=== PATIENT | female | born 1980 | race African-American/Black ===

== ENCOUNTER 2016-05-13 22:08 | Emergency (ER) | payer OTHER ==
[~2016-05-13] VITALS: Ht 160 cm; Wt 56.7 kg
[~2016-05-13 22:08] MED LIST: ADALAT CC60 MG; ALEVE220 MG; APAP500 PO; BLOOD PRESSURE; BUSPIRONE HCL10 MG PO; CIPROFLOXACIN500 M1 PO; CLEOCIN HCL150 MG PO; COLACE 100 MG100 MG PO; DERMOPLAST SPRA56 ML; FLAGYL500 MG PO; FLEXERIL PO; FLONASE 0.05%50 MCG NASAL; HYDROCORTISONE30 G9 RE; IBUPROFEN 400400 M2 PO; IBUPROFEN 800800 M1 PO; IRON325 PO; LANOLIN56 GM; LISINOPRIL5 MG PO; MEDROL DOSPAK21 TAB PO; MEDROLDOSEPACK PO; NOHOMEMEDICATIONS; NORCO 5-325 TA1 EACH PO; NORTRIPTYLINE H10 M2 PO; PHENERGAN 25 MG25 M1 PO; PRENATAL DHA+C1 EACH PO; TUCKS MEDICATE1 EAC1; ULTRAM 50MG TAB50 MG PO; VICODIN 5-5001 EACH PO; VITAMIN D3400 UNIT PO; XANAX 0.5 MG0.5 MG PO; ZOFRAN ODT4 MG PO
[2016-05-13] MEDS ORDERED: HYDRALAZINE 2525 M1 PO (22:17)
[2016-05-13 22:31] LABS: URINE BILIRUBIN NEGATIVE (Negative); URINE BLOOD NEGATIVE (Negative); URINE COLOR YELLOW; URINE GLUCOSE-RANDOM* NEGATIVE (Negative); URINE KETONES NEGATIVE (Negative); URINE LEUKOCYTES-REFLEX NEGATIVE (Negative); URINE PROTEIN (DIPSTICK) NEGATIVE (Negative); URINE UROBILINOGEN 0.2 E.U./dl (0.2-1.0)
[2016-05-13 23:12] LABS: HEMOGLOBIN 14.4 gm/dL (12.0-15.0); MANUAL DIFF YES; MCH 33.6 pg (26.0-34.0); MCHC 35.1 % (28.0-37.0); MCV 95.6 fL (80.0-100.0); PLATELET COUNT 227 thou/uL (150-400); RBC 4.29 mil/uL (4.20-5.00); RDW 11.7 % (10.5-14.5); WBC 8.2 thou/uL (4.0-11.0)
[2016-05-13 23:35] LABS: ALBUMIN 3.7 g/dL (3.4-5.0); ALKALINE PHOSPHATASE 83 U/L (46-116); ANION GAP 11 mmol/L (7-16); BUN 11 mg/dL (7-18); CALCIUM 8.8 mg/dL (8.5-10.1); CHLORIDE 107 mmol/L (98-107); CO2 25 mmol/L (21-32); DIRECT BILIRUBIN < 0.1 mg/dL (<0.1-0.3); GLUCOSE 95 mg/dL (70-99); POTASSIUM 3.4 mmol/L (3.5-5.1); SGOT 17 U/L (15-37); SGPT 25 U/L (30-65); SODIUM 143 mmol/L (136-145); TOTAL BILIRUBIN 0.2 mg/dL (<0.1-1.0); TOTAL PROTEIN 7.1 g/dL (6.4-8.2)
[2016-05-14 00:47] VITALS: BP 120/89
[2016-05-14 01:07] LABS: ABSOLUTE NEUTROPHILS 7.1 thou/uL (1.4-8.2); LARGE PLATELETS RARE; TOTAL CELL COUNT 100
== END 2016-05-14 00:48 | disposition home or self-care (01) ==
LOC: ER 22:08
PROVIDERS: Physician Assistant
DX: R10.33 Periumbilical pain (principal); I10 Essential (primary) hypertension; F17.210 Nicotine dependence, cigarettes, uncomplicated; Z88.6 Allergy status to analgesic agent; Z88.5 Allergy status to narcotic agent; Z88.1 Allergy status to other antibiotic agents

== ENCOUNTER 2017-01-19 07:47 | Emergency (ER) | payer OTHER ==
[~2017-01-19] VITALS: Ht 160 cm; Wt 56.7 kg
[~2017-01-19 07:47] MED LIST changes: +HYDRALAZINE 2525 M1 PO
[2017-01-19] MEDS ORDERED: NORCO 5-325 TA1 EACH PO (09:14)
[2017-01-19] MEDS ORDERED: PHENERGAN 25 MG25 M1 PO (09:27)
[2017-01-19 09:29] VITALS: BP 135/96
== END 2017-01-19 09:35 | disposition home or self-care (01) ==
LOC: ER 07:47
DX: S16.1XXA Strain of muscle, fascia and tendon at neck level, initial encounter (principal); I10 Essential (primary) hypertension; Z88.6 Allergy status to analgesic agent; V43.52XA Car driver injured in collision with other type car in traffic accident, initial encounter; Y93.89 Activity, other specified; Y92.89 Other specified places as the place of occurrence of the external cause; Y99.8 Other external cause status

== ENCOUNTER 2017-11-17 11:17 | Emergency (ER) | payer BC, OTHER ==
[~2017-11-17] VITALS: Ht 160 cm; Wt 59.0 kg
[2017-11-17 11:59] LABS: HEMOGLOBIN 13.5 gm/dL (12.0-15.0); MCH 33.3 pg (26.0-34.0); MCHC 34.6 g/dL (28.0-37.0); MCV 96.1 fL (80.0-100.0); RBC 4.06 mil/uL (4.20-5.00); RDW 12.3 % (10.5-14.5)
[2017-11-17 12:09] LABS: CALCIUM 9.2 mg/dL (8.5-10.1); CREATININE 1.4 mg/dL (0.6-1.0); POTASSIUM 3.5 mmol/L (3.5-5.1)
[2017-11-17] MEDS ORDERED: FLAGYL500 MG PO (13:45)
[2017-11-17] MEDS ORDERED: CIPRO500 MG PO (13:45)
[2017-11-17 13:53] VITALS: BP 143/94
== END 2017-11-17 13:59 | disposition home or self-care (01) ==
LOC: ER 11:17
PROVIDERS: Student in an Organized Health Care Education/Training Program
DX: K61.1 Rectal abscess (principal); F17.210 Nicotine dependence, cigarettes, uncomplicated; I10 Essential (primary) hypertension; Z88.4 Allergy status to anesthetic agent; Z88.8 Allergy status to other drugs, medicaments and biological substances; Z88.5 Allergy status to narcotic agent

== ENCOUNTER 2018-08-10 19:50 | Emergency (ER) | payer BC, OTHER ==
[~2018-08-10] VITALS: Ht 160 cm; Wt 65.8 kg
[~2018-08-10 19:50] MED LIST changes: -ADALAT CC60 MG; +ADALAT CC60 MG PO; +CIPRO500 MG PO
[2018-08-10 20:39] LABS: HEMATOCRIT 40.2 % (37.0-47.0); HEMOGLOBIN 14.1 gm/dL (12.0-15.0); MCH 33.6 pg (26.0-34.0); MCV 95.8 fL (80.0-100.0); RBC 4.2 mil/uL (4.20-5.00); RDW 13.4 % (10.5-14.5); WBC 8.6 thou/uL (4.0-11.0)
[2018-08-10 20:49] LABS: ANION GAP 13 mmol/L (7-16); BUN 13 mg/dL (7-18); CHLORIDE 107 mmol/L (98-107); CO2 23 mmol/L (21-32); CREATININE 0.9 mg/dL (0.6-1.0); GLUCOSE 94 mg/dL (74-106); POTASSIUM 3.2 mmol/L (3.5-5.1); SODIUM 143 mmol/L (136-145)
[2018-08-10 20:51] LABS: URINE BILIRUBIN NEGATIVE (Negative); URINE BLOOD NEGATIVE (Negative); URINE CLARITY CLEAR; URINE COLOR YELLOW; URINE GLUCOSE-RANDOM* NEGATIVE (Negative); URINE KETONES NEGATIVE (Negative); URINE LEUKOCYTES-REFLEX NEGATIVE (Negative); URINE NITRITE-REFLEX NEGATIVE (Negative); URINE PROTEIN (DIPSTICK) NEGATIVE (Negative); URINE UROBILINOGEN 0.2 E.U./dl (0.2-1.0)
[2018-08-10 21:00] LABS: ALBUMIN 3.9 g/dL (3.4-5.0); DIRECT BILIRUBIN < 0.1 mg/dL (<0.1-0.3); LIPASE 153 U/L (73-393); SGOT 18 U/L (15-37); SGPT 23 U/L (30-65); TOTAL BILIRUBIN 0.2 mg/dL (<0.1-1.0); TOTAL PROTEIN 7.3 g/dL (6.4-8.2); TROPONIN-I <0.06 ng/mL (<0.06)
[2018-08-10] MEDS ORDERED: CARAFATE 1 GM TA1 G1 PO (22:14)
[2018-08-10 22:22] VITALS: BP 142/97
--- NOTE | 2018-08-12 13:26 | EKG ---
[address] [place] [address] ELECTROCARDIOGRAM REPORT Name: MASONLIZETTEMARIANO GUPTA [id number] ������������������ Admission: 08/10/18 ������������������ Attend Phys: Discharge: 08/10/18 ������������������ Date of : 82 Report #: [id number] ����������������������������������������������������������������� [id number] THIS REPORT FOR: //name// [facility] ED Test Date: 2018-08-10 Test Time: 19:54:06 Pat Name: LIZETTE MASON Department: Room: Gender: F 3D Animator: WG : 1980 Requested By: Monica Ramos Order Number: [id number] MD: Anuj Bosch Measurements Intervals [place] Rate: 75 P: 20 NE: 132 QRS: 11 QRSD: 82 T: 46 QT: 398 QTc: 445 Interpretive Statements Sinus rhythm Normal tracing Compared to ECG 10/08/2015 16:35:47 No significant changes Electronically Signed On 08-12-2018 13:26:04 CDT by Anuj Bosch [email or web address] ��������������������������������������������� <ELECTRONICALLY SIGNED> ���������������������������������������� By: Anuj Bosch MD, [facility] ��������������������������������������������� 08/12/18 [id number] Anuj Bosch MD, FACC /EPI
== END 2018-08-10 22:33 | disposition home or self-care (01) ==
LOC: ER 19:50
PROVIDERS: Emergency Medicine
DX: K27.9 Peptic ulcer, site unspecified, unspecified as acute or chronic, without hemorrhage or perforation (principal); K21.9 Gastro-esophageal reflux disease without esophagitis; I10 Essential (primary) hypertension; F17.210 Nicotine dependence, cigarettes, uncomplicated; Z88.5 Allergy status to narcotic agent; Z88.8 Allergy status to other drugs, medicaments and biological substances

== ENCOUNTER 2019-04-14 19:18 | Emergency (ER) | payer BC, OTHER ==
[~2019-04-14] VITALS: Ht 160 cm; Wt 66.7 kg
[~2019-04-14 19:18] MED LIST changes: +CARAFATE 1 GM TA1 G1 PO
[2019-04-14 20:09] LABS: URINE BILIRUBIN NEGATIVE (Negative); URINE BLOOD NEGATIVE (Negative); URINE CLARITY CLEAR; URINE COLOR YELLOW; URINE GLUCOSE-RANDOM* NEGATIVE (Negative); URINE KETONES NEGATIVE (Negative); URINE LEUKOCYTES-REFLEX NEGATIVE (Negative); URINE NITRITE-REFLEX NEGATIVE (Negative); URINE PROTEIN (DIPSTICK) NEGATIVE (Negative); URINE SPECIFIC GRAVITY 1.015 (1.005-1.035); URINE UROBILINOGEN 0.2 E.U./dl (0.2-1.0)
[2019-04-14 21:15] LABS: ABSOLUTE NEUTROPHILS 5.4 thou/uL (1.4-8.2); BASOPHILS 0.7 % (0.0-2.0); EOSINOPHILS 1.5 % (0.0-3.0); HEMATOCRIT 40.3 % (37.0-47.0); HEMOGLOBIN 13.6 gm/dL (12.0-15.0); LYMPHOCYTES 25.6 % (24.0-44.0); MCH 32.3 pg (26.0-34.0); MCHC 33.8 g/dL (28.0-37.0); MCV 95.8 fL (80.0-100.0); MONOCYTES 7.3 % (1.0-8.0); PLATELET COUNT 329 thou/uL (150-400); POLYS 64.9 % (36.0-66.0); RDW 12.6 % (10.5-14.5); WBC 8.3 thou/uL (4.0-11.0)
[2019-04-14 21:27] LABS: CREATININE 0.9 mg/dL (0.6-1.0); POTASSIUM 3.5 mmol/L (3.5-5.1)
[2019-04-14 21:38] LABS: CALCIUM 8.9 mg/dL (8.5-10.1)
[2019-04-14 22:42] VITALS: BP 131/88
== END 2019-04-14 22:46 | disposition home or self-care (01) ==
LOC: ER 19:18
PROVIDERS: Emergency Medicine
DX: R10.2 Pelvic and perineal pain (principal); R10.9 Unspecified abdominal pain; I10 Essential (primary) hypertension; F17.210 Nicotine dependence, cigarettes, uncomplicated; Z88.6 Allergy status to analgesic agent; Z92.3 Personal history of irradiation; Z88.8 Allergy status to other drugs, medicaments and biological substances

== ENCOUNTER 2019-04-25 13:11 | Emergency (ER) | payer BC, OTHER ==
[~2019-04-25] VITALS: Ht 160 cm; Wt 66.7 kg
[2019-04-25] MEDS ORDERED: RAYOS5 MG PO (13:22)
[2019-04-25] MEDS ORDERED: PROAIR HFA8.5 GM INH (13:22)
[2019-04-25] MEDS ORDERED: TESSALON PERLE100 M1 PO (13:22)
[2019-04-25 15:33] VITALS: BP 114/77
[2019-04-25] MEDS ORDERED: PROMETH-CODEIN 65 ML PO (15:35)
== END 2019-04-25 15:34 | disposition home or self-care (01) ==
LOC: ER 13:11
DX: J06.9 Acute upper respiratory infection, unspecified (principal); I10 Essential (primary) hypertension; F17.210 Nicotine dependence, cigarettes, uncomplicated; Z88.6 Allergy status to analgesic agent; Z88.5 Allergy status to narcotic agent; Z88.8 Allergy status to other drugs, medicaments and biological substances

== ENCOUNTER 2019-12-03 06:28 | Inpatient (IN) | payer OTHER ==
[~2019-12-03] VITALS: Ht 160 cm; Wt 66.7 kg
--- NOTE | ~2019-12-03 | O ---
[facility] [place] [address] OPERATIVE REPORT Name: LIZETTE MASON Room #: 453-P ADM IN M.R.#: [id number] Admission: 12/03/19 Attend Phys: Eldon Breen MD Discharge: Date of : 82 Report #: [id number] THIS REPORT FOR: cc: Erick Francisco MD, Travis J. MD Patterson, Jonathan D. MD ~ CC: Eldon Francisco DATE OF SERVICE: 12/04/2019 PREOPERATIVE DIAGNOSIS: Perirectal abscess. POSTOPERATIVE DIAGNOSIS: Perirectal abscess. OPERATION: Incision and drainage of ischiorectal abscess. SURGEON: Kameron Stoner MD ANESTHESIA: General. ESTIMATED BLOOD LOSS: Minimal. SPECIMEN: None. DESCRIPTION OF PROCEDURE: After informed consent was obtained, the patient was brought to the operating room and placed supine. SCDs were placed and working and general anesthesia was induced. The patient was placed in the lithotomy position. The area was then prepped and draped in the usual sterile fashion. I made a 1.5 cm elliptical incision in the area of fluctuance, which was on the left side. There was an immediate campa of pus. This was all suctioned out. Loculations were broken up with a clamp. The area was then copiously irrigated with normal saline. It was packed with sterile gauze. Sterile dressings were applied. COMPLICATIONS: None. DISPOSITION: The patient was taken to recovery in satisfactory condition. By: Patito: 12/04/1929 Kameron Stoner MD /nt
[~2019-12-03 06:28] MED LIST changes: +PROAIR HFA8.5 GM INH; +PROMETH-CODEIN 65 ML PO; +RAYOS5 MG PO; +TESSALON PERLE100 M1 PO
[2019-12-03 06:29] VITALS: BP 129/81
[2019-12-03] MEDS ORDERED: PROCARDIA XL60 MG PO (06:33)
[2019-12-03 07:03] LABS: ABSOLUTE NEUTROPHILS 12.4 thou/uL (1.4-8.2); BASOPHILS 0.2 % (0.0-2.0); EOSINOPHILS 0.4 % (0.0-3.0); HEMATOCRIT 37.4 % (37.0-47.0); HEMOGLOBIN 12.6 gm/dL (12.0-15.0); LYMPHOCYTES 5.4 % (24.0-44.0); MCH 31.4 pg (26.0-34.0); MCHC 33.6 g/dL (28.0-37.0); MCV 93.3 fL (80.0-100.0); MONOCYTES 7.1 % (1.0-8.0); PLATELET COUNT 312 thou/uL (150-400); POLYS 86.9 % (36.0-66.0); RBC 4.01 mil/uL (4.20-5.00); WBC 14.3 thou/uL (4.0-11.0)
[2019-12-03 07:20] LABS: CALCIUM 8.5 mg/dL (8.5-10.1); CREATININE 0.8 mg/dL (0.6-1.0)
[2019-12-03 07:25] LABS: POTASSIUM 2.6 mmol/L (3.5-5.1)
[2019-12-03 08:11] LABS: APTT 30.8 Seconds (24.5-32.8); PROTIME 9.8 Seconds (9.3-11.4)
[2019-12-03 09:49] VITALS: BP 130/89
--- NOTE | 2019-12-03 10:34 | NUR ---
DR SUAZO CALLED AND STATED SURGERY WILL TAKE PLACE TOMORROW. HE WILL BE PLACING AN REGULAR DIET ORDER NOW AND NPO AFTER MIDNIGHT.
--- NOTE | 2019-12-03 11:37 | NUR ---
PAGED DR SUAZO TO ASK FOR PRN PAIN MEDICATION TO BE ORDERED WELL A DIET ORDER
[2019-12-03 11:46] VITALS: BP 129/94
--- NOTE | 2019-12-03 13:17 | NUR ---
PATIENT ADMITTED FROM ER WITH PERIRECTAL ABSCESS TO LEFT BUTTOCKS. PATIENT VERY ANXIOUS, C/O PAIN TO LEFT BUTTOCK 9/10. PATIENT VOMITED X 1 DURING ADMISSION. PATIENT HAS IV TO RIGHT FOREARM WITH NS AT 100CC/HR. ADMISSION STARTED WILL REPORT TO NIHARIKA/SHELLY.
--- NOTE | 2019-12-03 16:22 | NUR ---
PT ADMITTED RELATED TO MECHELLE-RECTAL ABSCESS. CM REVIEWED CHART AND SPOKE WITH CARE TEAM. CM CALLED AND SPOKE WITH PT AT BEDSIDE THIS DAY. PT APPEARED TO BE A&O X4. CM ROLE INTRODUCED. PT INDICATED SHE LIVES IN A HOUSE WITH HER CHILDREN AND MOTHER. SHE INDICATED THERE ARE 5 STEPS TO ENTER AND NO STEPS INSIDE. 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 PT INDICATED NO HH OR IVABX. PT INDICATED THAT SHE HAS [employer] INSURANCE THAT HER CARD IS AT HOME. PT'S COVID TEST IS PENDING IT IS ANTICPATED THAT PT WILL NEED SURGICAL INTERVETNION DURING STAY. CM TO FOLLOW INIDCATED WITH DC PLANNING.
[2019-12-03 19:53] VITALS: BP 130/85
[2019-12-04] VITALS (10 sets, daily range): BP systolic 114–139; BP diastolic 72–92
[2019-12-04 06:54] LABS: CALCIUM 8.8 mg/dL (8.5-10.1); CREATININE 0.9 mg/dL (0.6-1.0); POTASSIUM 3.2 mmol/L (3.5-5.1)
--- NOTE | 2019-12-04 08:17 | NUR ---
Assumed pt care at 1900. A/OX4,VSS. Up ad smitha c/o pain to left buttock area w/movement;area not open but firm/tender to touch. Pt has been NPO since midnight for I&D. Left for I&D at 0630.
--- NOTE | 2019-12-04 15:13 | NUR ---
PT IS POST OP I&D THIS AM. PT CONTINUES ON IV ABX. CM TO FOLLOW INDICATED WITH DC PLANNING.
--- NOTE | 2019-12-04 19:43 | NUR ---
Assumed pt care post surgery in the in the afternoon. Pain is managed with medications, generalized itching noted post op medication given. Afshan rectal dressing was soaked with pink drainage. POC followed, diet and medications are tolerated well. Endorsed to the night nurse.
--- NOTE | 2019-12-05 03:29 | NUR ---
Assumed pt care at 1900. A/OX4,VSS. No N/V verbalized, left buttock pain 5/10 medicated with [place] with relief reported and denied need for an icepack. Post-op dressing in place on left buttock. Up ad smitha w/o any problems.Encouraged to call for help as needed. Resting quietly at this time with no distress noted. Will continue to monitor pt.
[2019-12-05 07:40] VITALS: BP 137/101
[2019-12-05] MEDS ORDERED: MIRALAX119 GM PO (08:00)
[2019-12-05] MEDS ORDERED: SENNA PLUS TAB1 EACH PO (08:00)
[2019-12-05] MEDS ORDERED: HYDROCODON-ACE1 EAC7 PO (08:00)
[2019-12-05] MEDS ORDERED: AUGMENTIN 875-1 EACH PO (08:01)
--- NOTE | 2019-12-05 11:59 | NUR ---
CARE TEAM INDICATED THAT PT IS MEDICALLY STABLE TO DC HOME THIS DAY. PT IS TO DC HOME TO SELF CARE. PT INIDCATED THAT SHE HAD FAMILY AT HOME WHO IS ABLE TO ASSIST HER WITH HER DRESSING CHANGES UPON DC. [place] INIDCATED NO ISSUES, QUESTIONS, OR CONCERNS ABOUT DISCHARGING HOME THIS DAY. PT INDICATED SHE WOULD CALL WIHT HER INSURANCE INFO NO NONE WAS ABLE TO BRING HER CARD DURING VISITING HRS. NO OTHER CM INTERVENTION INDICATED. CASE CLOSED.
[2019-12-05 12:05] VITALS: BP 129/84
[2019-12-05 15:29] VITALS: BP 129/84
--- NOTE | 2019-12-05 16:23 | NUR ---
Assumed pt care this am, VS stable dressing and packing changed. diet and medication are tolerated well. Pain is managed with medications. POC followed with no signs or verbalizations of distress noted. IV removed dc instructions given. Pt is now dc. picked up bu the mother at the ER.
== END 2019-12-05 16:15 | disposition home or self-care (01) | DRG 346 ==
LOC: ER 06:28 → 4W 09:32 → EROBS 09:32 → 4W 12:05
PROVIDERS: Anesthesiology; Emergency Medicine; ADMIT Surgery; ATTEND Surgery
PROC: 0D9P0ZZ Drainage of Rectum, Open Approach (ICD-10-PCS; principal; 2019-12-04)
DX: K61.1 Rectal abscess (principal); I10 Essential (primary) hypertension; F17.210 Nicotine dependence, cigarettes, uncomplicated; Z20.828 Contact with and (suspected) exposure to other viral communicable diseases; Z88.6 Allergy status to analgesic agent; Z88.8 Allergy status to other drugs, medicaments and biological substances; Z79.899 Other long term (current) drug therapy
CPT/HCPCS: 10040; 50010; 50101; 50386; 62110; 62900; 70005

== ENCOUNTER 2021-06-06 12:37 | Emergency (ER) | payer OTHER ==
[~2021-06-06] VITALS: Ht 160 cm; Wt 59.0 kg
[~2021-06-06 12:37] MED LIST changes: +AUGMENTIN 875-1 EACH PO; +HYDROCODON-ACE1 EAC7 PO; +MIRALAX119 GM PO; +PROCARDIA XL60 MG PO; +SENNA PLUS TAB1 EACH PO
[2021-06-06] MEDS ORDERED: TOPROL XL100 MG PO (12:45)
[2021-06-06 13:05] LABS: URINE BLOOD 3+ (Negative); URINE CLARITY CLOUDY; URINE GLUCOSE-RANDOM* TRACE (Negative); URINE KETONES 2+ (Negative); URINE LEUKOCYTES-REFLEX NEGATIVE (Negative); URINE PROTEIN (DIPSTICK) 2+ (Negative); URINE SPECIFIC GRAVITY >= 1.030 (1.005-1.035)
[2021-06-06 13:06] LABS: ICTOTEST (BILI CONFIRMATORY) Negative (Negative); URINE BILIRUBIN NEGATIVE (Negative); URINE COLOR DARK YELLOW; URINE NITRITE-REFLEX POSITIVE (Negative)
[2021-06-06 13:15] LABS: HYALINE CASTS 0-3 Few /LPF (None Seen); SQUAMOUS 4-10 Moderate /LPF (0-3); URINE RBC >20 Many /HPF (NONE SEEN)
[2021-06-06 13:16] LABS: BACTERIA-REFLEX 1-9 Few /HPF (None Seen); CRYSTALS None Seen /LPF (None Seen); URINE WBC-REFLEX 0-5 Rare /HPF (0-5)
[2021-06-06 13:28] LABS: ABSOLUTE NEUTROPHILS 6.8 thou/uL (1.4-8.2); BASOPHILS 0.5 % (0.0-2.0); EOSINOPHILS 0.4 % (0.0-3.0); HEMATOCRIT 34.3 % (37.0-47.0); HEMOGLOBIN 11.6 gm/dL (12.0-15.0); LYMPHOCYTES 8.5 % (24.0-44.0); MCH 30.7 pg (26.0-34.0); MCHC 33.7 g/dL (28.0-37.0); MCV 91.2 fL (80.0-100.0); PLATELET COUNT 317 thou/uL (150-400); POLYS 86.6 % (36.0-66.0); RBC 3.76 mil/uL (4.20-5.00); RDW 19.5 % (10.5-14.5); WBC 7.9 thou/uL (4.0-11.0)
[2021-06-06 13:43] LABS: CALCIUM 9.1 mg/dL (8.5-10.1)
[2021-06-06 13:49] LABS: ALBUMIN 3.9 g/dL (3.4-5.0); TOTAL BILIRUBIN 2.2 mg/dL (0.2-1.0); TOTAL PROTEIN 7.8 g/dL (6.4-8.2)
[2021-06-06 15:49] LABS: ANISOCYTOSIS 2+; HYPOCHROMASIA 1+
[2021-06-06] MEDS ORDERED: ONDANSETRON ODT4 MG PO (16:27)
[2021-06-06] MEDS ORDERED: BACTRIM DS TAB1 EACH PO (16:27)
[2021-06-06] MEDS ORDERED: TRAMADOL 50 MG50 MG PO (16:27)
[2021-06-06 16:30] VITALS: BP 151/111
== END 2021-06-06 16:51 | disposition home or self-care (01) ==
LOC: ER 12:37
PROVIDERS: Physician Assistant
DX: D25.9 Leiomyoma of uterus, unspecified (principal); N39.0 Urinary tract infection, site not specified; R74.01 Elevation of levels of liver transaminase levels; I10 Essential (primary) hypertension; F17.210 Nicotine dependence, cigarettes, uncomplicated; Z88.5 Allergy status to narcotic agent; Z88.8 Allergy status to other drugs, medicaments and biological substances